=== PATIENT | male | born 1990 | race Hispanic/Latino ===

== ENCOUNTER 2017-10-25 20:54 | Emergency (ER) | payer BC ==
[~2017-10-25] VITALS: Ht 177.8 cm; Wt 131.5 kg
[2017-10-25] MEDS ORDERED: KETOROLAC TROME10 MG PO (21:29)
== END 2017-10-25 21:53 | disposition home or self-care (01) ==
LOC: ED 20:54
DX: S93.401A Sprain of unspecified ligament of right ankle, initial encounter (principal); X50.1XXA Overexertion from prolonged static or awkward postures, initial encounter
CPT/HCPCS: 73610; 99283

== ENCOUNTER 2023-06-22 14:14 | Emergency (ER) | payer BC ==
[~2023-06-22] VITALS: Ht 182.9 cm; Wt 131.5 kg
--- NOTE | ~2023-06-22 | EKG ---
[facility] [address] [facility] [facility] [place], [place] [address] Draft EK completed, results pending confirmation PATIENT NAME: VALDO HILLS Electrocardiogram DATE OF : 88 PHYSICIAN: PRELIMINARY REPORT #: [id number] REPORT IS CONFIDENTIAL AND NOT TO BE RELEASED WITHOUT AUTHORIZATION
[~2023-06-22 14:14] MED LIST: KETOROLAC TROME10 MG PO
[2023-06-22 14:42] LABS: MCH 30.6 (27-36)
[2023-06-22 14:45] LABS: BASOPHILS 0.7 % (0-2); EOSINOPHILS 1.9 % (0-6); HEMATOCRIT 43.2 % (35.0-50.0); HEMOGLOBIN 14.7 g/dL (12.0-18.0); LYMPHOCYTES 30.5 % (24-44); MCV 89.9 fl (81-99); MONOCYTES 8.2 % (0-12); NEUTROPHILS 58.7 % (39-80); PLATELET COUNT 230 K/uL (140-440); RBC 4.81 M/ul (4.3-5.7)
[2023-06-22 14:54] LABS: ALBUMIN 3.8 g/dL (3.4-5.0); ALBUMIN/GLOBULIN RATIO 0.97 (1.1-2.4); ANION GAP 12.8 (7-21); BILIRUBIN, TOTAL 0.8 ng/dL (0.2-1.0); BUN/CREATININE RATIO 15.55 (6.0-28.6); CALCIUM 8.8 mg/dL (8.5-10.1); CREATININE, SERUM 0.9 mg/dL (0.70-1.30); POTASSIUM 3.8 mmol/L (3.5-5.1); PROTEIN, TOTAL 7.7 g/dL (6.4-8.2)
[2023-06-22] MEDS ORDERED: NITROGLYCERIN0.4 MG SL (17:40)
[2023-06-22] MEDS ORDERED: ADULT LOW DOSE81 MG PO (17:40)
[2023-06-22 17:59] VITALS: BP 148/87
== END 2023-06-22 18:05 | disposition home or self-care (01) ==
LOC: ED 14:14
PROVIDERS: Emergency Medicine
DX: R07.2 Precordial pain (principal)
CPT/HCPCS: 36415; 71045; 76705; 80053; 83690; 84484; 85025; 93005; 93010; 99285-25; A9270